=== PATIENT | female | born 1975 | race Caucasian/White ===

== ENCOUNTER → 2016-03-01 | Outpatient (CLI) | payer BC ==
--- NOTE | 2016-03-01 08:59 | MR ---
PRE AND POSTCONTRAST ENHANCED MRI OF THE BRAIN: CLINICAL HISTORY: G50.0 lt sided trigeminal neuralgia, ear pain, jaw pain, dizziness CONTRAST: 20 ML Multihance Multiplanar and multispin-echo imaging of the brain was performed both before and after the administr ation of contrast. The ventricles, basal cisterns and sulci overlying the cerebral convexities are within normal limits. There is no evidence for midline shift or mass effect. Acute intracranial hemorrhage or extra-axial collection is not evident. There are no abnormal areas of increased or decreased signal intensity within the brain parenchyma. Following contrast administration, there is no evidence for pathologic enhancement or enhancing mass. The paranasal sinuses and mastoid air cells are well-aerated. IMPRESSION: Unremarkable pre and postcontrast enhanced MRI of the brain.
== END | disposition home or self-care (01) ==
LOC: RADMRIMAIN 07:53
PROVIDERS: ATTEND Psychiatry & Neurology Neurology
DX: G50.0 Trigeminal neuralgia (principal)
CPT/HCPCS: 70553; A9577

== ENCOUNTER 2016-08-23 12:42 | Emergency (ER) | payer BC, OTHER ==
[2016-08-23] MEDS ORDERED: SODIUM CHLORIDE 0.9% 1,000 ML IV STA (13:03)
--- NOTE | 2016-08-23 13:06 | ED ---
General Adult HPI - General Chief complaint: Arrhythmia/Palpitations Stated complaint: heart palpatations Time Seen by Provider: 08/23/16 12:59 Source: patient Mode of arrival: wheelchair Limitations: no limitations - History of Present Illness Initial comments: Patient is a pleasant 41-year-old female presenting to the emergency Department with palpitations. Symptoms have been present for the past week. Symptoms are intermittent. Symptoms usually seem to be worse after eating or late afternoon. Patient states symptoms are not present at this time. No associated chest pain or dyspnea. No leg pain or leg swelling. Patient did see her doctor for this and did have a Holter monitor however results are not back - Related Data Home Medications Medication Instructions Recorded Confirmed hydrOXYzine HCL [Atarax] 25 mg PO HS 07/03/14 08/23/16 Cholecalciferol [Vitamin D3] 4,000 unit PO DAILY 08/23/16 08/23/16 FLUoxetine HCL [PROzac] 40 mg PO DAILY 08/23/16 08/23/16 Gabapentin [Neurontin] 200 mg PO HS 08/23/16 08/23/16 Ibuprofen [Motrin] 600 mg PO Q8HR PRN 08/23/16 08/23/16 L.acidoph,Paracasei, B.lactis 1 cap PO DAILY 08/23/16 08/23/16 [Probiotic] LORazepam [Ativan] 0.5 mg PO HS PRN 08/23/16 08/23/16 Levothyroxine Sodium [Levoxyl] 200 mcg PO DAILY 08/23/16 08/23/16 Omeprazole [PriLOSEC] 20 mg PO AC-BID 08/23/16 08/23/16 Vitamin B Complex 1 cap PO DAILY 08/23/16 08/23/16 Allergies Allergy/AdvReac Type Severity Reaction Status Date / Time azithromycin [From Zithromax] Allergy Rash/Hives Verified 08/23/16 14:14 Cephalosporins Allergy Rash/Hives Verified 08/23/16 14:14 peanut Allergy Unknown Verified 08/23/16 14:14 Penicillins Allergy Rash/Hives Verified 08/23/16 14:14 Review of Systems ROS Statement: Those systems with pertinent positive or pertinent negative responses have been documented in the HPI. ROS Other: All systems not noted in ROS Statement are negative. Constitutional: Denies: fever Eyes: Denies: eye pain ENT: Denies: ear pain Respiratory: Denies: cough, dyspnea Cardiovascular: Reports: palpitations. Denies: chest pain Endocrine: Denies: fatigue Gastrointestinal: Denies: abdominal pain Genitourinary: Denies: dysuria Musculoskeletal: Denies: back pain Skin: Denies: rash Neurological: Denies: weakness Past Medical History Past Medical History: Asthma, GERD/Reflux, Thyroid Disorder History of Any Multi-Drug Resistant Organisms: None Reported Past Surgical History: Uterine Ablation Additional Past Surgical History / Comment(s): eye surg. Past Anesthesia/Blood Transfusion Reactions: No Reported Reaction Past Psychological History: Anxiety, Depression Smoking Status: Never smoker Past Alcohol Use History: None Reported Past Drug Use History: None Reported - Past Family History Mother Family Medical History: No Reported History General Exam Limitations: no limitations General appearance: alert, in no apparent distress Head exam: Present: atraumatic Eye exam: Present: normal appearance, PERRL ENT exam: Present: normal oropharynx Neck exam: Present: normal inspection Respiratory exam: Present: normal lung sounds bilaterally Cardiovascular Exam: Present: regular rate, normal rhythm, normal heart sounds Expanded Peripheral pulses: 2+: Radial (R), Radial (L), Dorsalis Pedis (R), Dorsalis Pedis (L) GI/Abdominal exam: Present: soft. Absent: tenderness Extremities exam: Present: normal inspection. Absent: pedal edema, calf tenderness Neurological exam: Present: alert Psychiatric exam: Present: normal affect, normal mood Skin exam: Present: normal color Course Vital Signs 08/23/16 08/23/16 12:44 13:34 Temperature 97.8 F 98.9 F Pulse Rate 85 92 Respiratory 20 16 Rate Blood Pressure 135/78 131/64 O2 Sat by Pulse 95 98 Oximetry EKG Findings - EKG Comments: EKG Findings:: Normal sinus rhythm 81. AK 162. QRS 92. QT 388. QTC 450. Normal axis. Normal QRS. Normal ST-T. Medical Decision Making - Medical Decision Making Patient reevaluated and resting comfortably in bed. Patient remained symptom- free. Patient updated on results and need for follow-up. Patient does not want to start a trial of beta blockers at this time. - Lab Data Result diagrams: 08/23/16 13:17 08/23/16 13:17 Lab Results 08/23/16 08/23/16 08/23/16 Range/Units 13:17 13:17 13:17 WBC 6.4 (3.8-10.6) k/uL RBC 4.51 (3.80-5.40) m/uL Hgb 13.7 (11.4-16.0) gm/dL Hct 38.4 (34.0-46.0) % MCV 85.1 (80.0-100.0) fL MCH 30.4 (25.0-35.0) pg MCHC 35.7 (31.0-37.0) g/dL RDW 12.4 (11.5-15.5) % Plt Count 290 (150-450) k/uL Neutrophils % 50 % Lymphocytes % 39 % Monocytes % 5 % Eosinophils % 3 % Basophils % 2 % Neutrophils # 3.2 (1.3-7.7) k/uL Lymphocytes # 2.5 (1.0-4.8) k/uL Monocytes # 0.3 (0-1.0) k/uL Eosinophils # 0.2 (0-0.7) k/uL Basophils # 0.1 (0-0.2) k/uL PT (9.0-12.0) sec INR (<1.1) APTT (22.0-30.0) sec Sodium 143 (137-145) mmol/L Potassium 3.9 (3.5-5.1) mmol/L Chloride 108 H (98-107) mmol/L Carbon Dioxide 24 (22-30) mmol/L Anion Gap 11 mmol/L BUN 9 (7-17) mg/dL Creatinine 0.70 (0.52-1.04) mg/dL Est GFR (MDRD) Af Amer >60 (>60 ml/min/1.73 sqM) Est GFR (MDRD) Non-Af >60 (>60 ml/min/1.73 sqM) Glucose 102 H (74-99) mg/dL Calcium 9.3 (8.4-10.2) mg/dL Magnesium 1.9 (1.6-2.3) mg/dL Total Bilirubin 0.3 (0.2-1.3) mg/dL AST 20 (14-36) U/L ALT 27 (9-52) U/L Alkaline Phosphatase 67 (38-126) U/L Total Creatine Kinase 52 (30-135) U/L CK-MB (CK-2) 0.4 (0.0-2.4) ng/mL CK-MB (CK-2) Rel Index 0.8 Troponin I <0.012 (0.000-0.034) ng/mL Total Protein 6.7 (6.3-8.2) g/dL Albumin 4.1 (3.5-5.0) g/dL TSH 0.403 L (0.465-4.680) mIU/L Free T4 1.26 (0.78-2.19) ng/dL Free T3 pg/mL 3.8 (2.8-5.3) pg/ml 08/23/16 Range/Units 13:17 WBC (3.8-10.6) k/uL RBC (3.80-5.40) m/uL Hgb (11.4-16.0) gm/dL Hct (34.0-46.0) % MCV (80.0-100.0) fL MCH (25.0-35.0) pg MCHC (31.0-37.0) g/dL RDW (11.5-15.5) % Plt Count (150-450) k/uL Neutrophils % % Lymphocytes % % Monocytes % % Eosinophils % % Basophils % % Neutrophils # (1.3-7.7) k/uL Lymphocytes # (1.0-4.8) k/uL Monocytes # (0-1.0) k/uL Eosinophils # (0-0.7) k/uL Basophils # (0-0.2) k/uL PT 9.7 (9.0-12.0) sec INR 0.9 (<1.1) APTT 22.8 (22.0-30.0) sec Sodium (137-145) mmol/L Potassium (3.5-5.1) mmol/L Chloride (98-107) mmol/L Carbon Dioxide (22-30) mmol/L Anion Gap mmol/L BUN (7-17) mg/dL Creatinine (0.52-1.04) mg/dL Est GFR (MDRD) Af Amer (>60 ml/min/1.73 sqM) Est GFR (MDRD) Non-Af (>60 ml/min/1.73 sqM) Glucose (74-99) mg/dL Calcium (8.4-10.2) mg/dL Magnesium (1.6-2.3) mg/dL Total Bilirubin (0.2-1.3) mg/dL AST (14-36) U/L ALT (9-52) U/L Alkaline Phosphatase (38-126) U/L Total Creatine Kinase (30-135) U/L CK-MB (CK-2) (0.0-2.4) ng/mL CK-MB (CK-2) Rel Index Troponin I (0.000-0.034) ng/mL Total Protein (6.3-8.2) g/dL Albumin (3.5-5.0) g/dL TSH (0.465-4.680) mIU/L Free T4 (0.78-2.19) ng/dL Free T3 pg/mL (2.8-5.3) pg/ml - Radiology Data Radiology results: image reviewed (Chest x-ray shows no acute process) Disposition Clinical Impression: Palpitations Disposition: HOME SELF-CARE Condition: Stable Instructions: Palpitations (ED) Additional Instructions: Please follow-up with your doctor in the next couple of days for recheck. Also for Holter monitor results. Return for increased heart rate, regular heart beat , worsening symptoms or other concerns. Referrals: Niko Ivey DO [Primary Care Provider] - 1-2 days Time of Disposition: 14:44
[2016-08-23 13:35] LABS: Basophils # (A) 0.1 k/uL (0-0.2); Basophils % (A) 2 %; CH 29.6; CHCM 34.9; Eosinophils # (A) 0.2 k/uL (0-0.7); Eosinophils % (A) 3 %; HCT 38.4 % (34.0-46.0); HGB 13.7 gm/dL (11.4-16.0); Luc # (Auto) 0.17; Luc % (Auto) 3; Lymphocytes # (A) 2.5 k/uL (1.0-4.8); Lymphocytes % (A) 39 %; MCH 30.4 pg (25.0-35.0); MCHC 35.7 g/dL (31.0-37.0); MCV 85.1 fL (80.0-100.0); Mean Platelet Volume 7.6; Monocytes # (A) 0.3 k/uL (0-1.0); Monocytes % (A) 5 %; Neutrophils # (A) 3.2 k/uL (1.3-7.7); Neutrophils % (A) 50 %; RBC 4.51 m/uL (3.80-5.40); RDW 12.4 % (11.5-15.5); WBC 6.4 k/uL (3.8-10.6)
[2016-08-23 13:43] LABS: INR 0.9 (<1.1); Partial Thromboplastin Time 22.8 sec (22.0-30.0); Prothrombin Time 9.7 sec (9.0-12.0)
[2016-08-23 13:46] VITALS: RESP 16
[2016-08-23 13:53] LABS: ALT 27 U/L (9-52); AST 20 U/L (14-36); Alkaline Phosphatase 67 U/L (38-126); Anion Gap 11 mmol/L; Blood Urea Nitrogen 9 mg/dL (7-17); Calcium 9.3 mg/dL (8.4-10.2); Carbon Dioxide 24 mmol/L (22-30); Chloride 108 mmol/L (98-107); Glucose 102 mg/dL (74-99); Magnesium 1.9 mg/dL (1.6-2.3); Non-African American GFR(MDRD) >60 (>60 ml/min/1.73 sqM); Potassium 3.9 mmol/L (3.5-5.1); Sodium 143 mmol/L (137-145); Total Bilirubin 0.3 mg/dL (0.2-1.3); Total Protein 6.7 g/dL (6.3-8.2)
[2016-08-23 13:58] LABS: Creatine Kinase 52 U/L (30-135)
--- NOTE | 2016-08-23 14:01 | XR ---
EXAMINATION TYPE: XR chest 2V DATE OF EXAM: 08/23/2016 COMPARISON: 11/02/2015 INDICATION: Heart palpitations asthma TECHNIQUE: Frontal and lateral views of the chest are obtained. FINDINGS: The heart size is normal. The pulmonary vasculature is normal. The lungs are clear. IMPRESSION: 1. No acute pulmonary process.
[2016-08-23 14:10] LABS: Creatine Kinase MB 0.4 ng/mL (0.0-2.4); Troponin I <0.012 ng/mL (0.000-0.034)
[2016-08-23 15:15] VITALS: BP 127/66; PULSE 76; TEMP 98.8
== END 2016-08-23 15:00 | disposition home or self-care (01) ==
LOC: EC 12:42
DX: R00.2 Palpitations (principal); K21.9 Gastro-esophageal reflux disease without esophagitis; E07.9 Disorder of thyroid, unspecified; F32.9 Major depressive disorder, single episode, unspecified; F41.9 Anxiety disorder, unspecified; Z79.899 Other long term (current) drug therapy; Z88.0 Allergy status to penicillin; Z88.1 Allergy status to other antibiotic agents; Z91.010 Allergy to peanuts
CPT/HCPCS: 36415; 71020; 80053; 82550; 82553; 83735; 84439; 84443; 84481; 84484; 85025; 85610; 85730; 93005; 96360; 99285

== ENCOUNTER → 2017-01-08 | Outpatient (CLI) | payer BC ==
[2017-01-08 15:15] LABS: Anion Gap 10 mmol/L; Blood Urea Nitrogen 14 mg/dL (7-17); Calcium 9.7 mg/dL (8.4-10.2); Carbon Dioxide 30 mmol/L (22-30); Chloride 101 mmol/L (98-107); Glucose 100 mg/dL (74-99); Non-African American GFR(MDRD) >60 (>60 ml/min/1.73 sqM); Phosphorous 3.5 mg/dL (2.5-4.5); Potassium 3.3 mmol/L (3.5-5.1); Sodium 141 mmol/L (137-145)
== END | disposition home or self-care (01) ==
LOC: LABWHC1 14:28
PROVIDERS: ATTEND Internal Medicine Endocrinology, Diabetes & Metabolism
DX: E11.65 Type 2 diabetes mellitus with hyperglycemia (principal); E03.9 Hypothyroidism, unspecified; N25.81 Secondary hyperparathyroidism of renal origin
CPT/HCPCS: 36415; 80048; 82040; 82306; 84100; 84439; 84443

== ENCOUNTER → 2017-10-10 | Outpatient (CLI) | payer BC ==
--- NOTE | 2017-10-10 08:04 | US ---
EXAMINATION TYPE: US pelvic complete DATE OF EXAM: 10/10/2017 COMPARISON: NONE CLINICAL HISTORY: R10.2 Pelvic pain. TECHNIQUE: Transabdominal sonographic images of the pelvis were acquired. Date of LMP: Ablation 10 years prior, no menses since then until August and patient had 8 hours of ble eding EXAM MEASUREMENTS: Uterus: 8.6 x 3.9 x 4.6 cm Endometrial Stripe: 0.4 cm Right Ovary: 2.0 x 1.3 x 1.5 cm Left Ovary: 1.7 x 1.6 x 1.5 cm 1. Uterus: Anteverted 2. Endometrium: ablation 10 years prior, small echogenic foci noted within 3. Right Ovary: wnl 4. Left Ovary: wnl 5. Bilateral Adnexa: wnl 6. Posterior cul-de-sac: wnl IMPRESSION: Endometrium is not well-defined and likely due to prior intervention as noted by patient history.
== END | disposition home or self-care (01) ==
LOC: RADUSWWP 06:54
PROVIDERS: ATTEND Family Medicine
DX: R10.2 Pelvic and perineal pain (principal)
CPT/HCPCS: 76856

== ENCOUNTER → 2017-10-17 | Outpatient (CLI) | payer BC ==
--- NOTE | 2017-10-18 13:41 | MM ---
Reason for exam: screening (asymptomatic). Last mammogram was performed 10 years and 1 month ago. History: Family history of breast cancer in grandmother. Took hormonal contraceptives for 31 years. Physical Findings: A clinical breast exam by your physician is recommended on an annual basis and results should be correlated with mammographic findings. MG Screening Mammo w CAD Bilateral CC and MLO view(s) were taken. Prior study comparison: September 13, 2007, bilateral diagnostic digital mammog. The breast tissue is heterogeneously dense. This may lower the sensitivity of mammography. There is no discrete abnormality. No significant changes when compared with prior studies. ASSESSMENT: Negative, BI-RAD 1 RECOMMENDATION: Routine screening mammogram of both breasts in 1 year.
== END | disposition home or self-care (01) ==
LOC: RADMAMWWP 16:47
PROVIDERS: ATTEND Family Medicine
DX: Z12.31 Encounter for screening mammogram for malignant neoplasm of breast (principal)
CPT/HCPCS: 77067

== ENCOUNTER → 2020-01-07 | Outpatient (CLI) | payer BC ==
[2020-01-07 08:45] LABS: Basophils # (A) 0.1 k/uL (0-0.2); Basophils % (A) 1 %; Eosinophils # (A) 0.2 k/uL (0-0.7); Eosinophils % (A) 2 %; HCT 45.5 % (34.0-46.0); HGB 15.3 gm/dL (11.4-16.0); Lymphocytes # (A) 1.4 k/uL (1.0-4.8); Lymphocytes % (A) 14 %; MCH 30.3 pg (25.0-35.0); MCHC 33.6 g/dL (31.0-37.0); MCV 90.3 fL (80.0-100.0); Mean Platelet Volume 7.7; Monocytes # (A) 0.4 k/uL (0-1.0); Monocytes % (A) 4 %; Neutrophils # (A) 8.2 k/uL (1.3-7.7); Neutrophils % (A) 79 %; Platelet Count 301 k/uL (150-450); RBC 5.04 m/uL (3.80-5.40); RDW 11.9 % (11.5-15.5); WBC 10.3 k/uL (3.8-10.6)
[2020-01-07 08:55] LABS: Calcium 9.4 mg/dL (8.4-10.2); Potassium 3.3 mmol/L (3.5-5.1)
[2020-01-07 09:20] LABS: Appearance,Urine Clear (Clear); Bilirubin,Urine Negative (Negative); Blood,Urine Negative (Negative); Color,Urine Yellow; Glucose,Urine (UA) Negative (Negative); Ketones,Urine Negative (Negative); Leukocyte Esterase,Urine Negative (Negative); Nitrite,Urine Negative (Negative); PH, Urine 5.5 (5.0-8.0); Protein,Urine Trace (Negative); Specific Gravity,Urine 1.028 (1.001-1.035); Urobilinogen,Urine <2.0 mg/dL (<2.0)
== END | disposition home or self-care (01) ==
LOC: LABPAT 07:54
PROVIDERS: ATTEND Urology
DX: Z01.818 Encounter for other preprocedural examination (principal); N39.3 Stress incontinence (female) (male); R35.0 Frequency of micturition; Z79.899 Other long term (current) drug therapy
CPT/HCPCS: 36415; 80048; 81003; 85025; 87086

== ENCOUNTER 2020-01-14 06:09 | Observation (INO) | payer BC ==
[2020-01-09 16:51] VITALS: BMI 32.5
--- NOTE | 2020-01-13 19:58 | P.GSHP ---
History of Present Illness H&P Date: 01/13/20 44 yo female with worsening juan jose for several years. [id number] SHe has documented urinary leakage with valsalva, uds. SHe has a hypermobile urethra. Her LPP are between 110 and 153 cm h2o. She cones for a tot. The risks complications and alternatives have been discussed. the mesh controversy including pain, erosion, injury to adjacent organs have been discussed. - Constitutional Constitutional: Denies chills, Denies fever - EENT Eyes: denies blurred vision, denies pain Ears, nose, mouth and throat: Denies headache, Denies sore throat - Cardiovascular Cardiovascular: Denies chest pain, Denies shortness of breath - Respiratory Respiratory: Denies cough, Denies 7 - Gastrointestinal Gastrointestinal: Denies abdominal pain, Denies diarrhea, Denies nausea, Denies vomiting - Genitourinary (Female) Genitourinary: Denies dysuria, Denies hematuria - Genitourinary (Male) Genitourinary: Denies dysuria, Denies hematuria - Musculoskeletal Musculoskeletal: Denies myalgias - Integumentary Integumentary: Denies pruritus, Denies rash - Neurological Neurological: Denies numbness, Denies weakness - Psychiatric Psychiatric: Denies anxiety, Denies depression - Endocrine Endocrine: Denies fatigue, Denies weight change Past Medical History Past Medical History: Asthma, GERD/Reflux, Hyperlipidemia, Hypertension, Sleep Apnea/CPAP/BIPAP, Thyroid Disorder Additional Past Medical History / Comment(s): Hx of occ PVC's, stress induced. Mild allergic asthma. "Family Dr Ernst says HTN, but it's always been good." Bladder stress incontinance. Has CPAP. History of Any Multi-Drug Resistant Organisms: None Reported Past Surgical History: Uterine Ablation Additional Past Surgical History / Comment(s): Muscle eye surg; PRK bilat. Past Anesthesia/Blood Transfusion Reactions: No Reported Reaction Smoking Status: Never smoker - Past Family History Mother Family Medical History: No Reported History Medications and Allergies Home Medications Medication Instructions Recorded Confirmed Type Cholecalciferol [Vitamin D3] 5,000 unit PO HS 08/23/16 01/09/20 History FLUoxetine HCL [PROzac] 40 mg PO HS 08/23/16 01/09/20 History Levothyroxine Sodium [Levoxyl] 150 mcg PO DAILY 08/23/16 01/09/20 History Omeprazole [PriLOSEC] 20 mg PO AC-BID 08/23/16 01/09/20 History Atenolol [Tenormin] 25 mg PO DAILY PRN 01/09/20 01/09/20 History Atorvastatin [Lipitor] 40 mg PO HS 01/09/20 01/09/20 History Fexofenadine HCl [Nicol Allergy] 180 mg PO HS 01/09/20 01/09/20 History Pseudoephedrine [Sudafed] 30 mg PO BID 01/09/20 01/09/20 History Topiramate [Topamax] 25 mg PO HS 01/09/20 01/09/20 History Topiramate [Topamax] 50 mg PO DAILY 01/09/20 01/09/20 History busPIRone HCL [Buspar] 7.5 mg PO BID 01/09/20 01/09/20 History traZODone HCL 50 mg PO HS 01/09/20 01/09/20 History Allergies Allergy/AdvReac Type Severity Reaction Status Date / Time peanut Allergy Severe Dyspnea Verified 01/09/20 16:13 Cephalosporins Allergy Rash/Hives Verified 01/09/20 16:13 Penicillins Allergy Rash/Hives Verified 01/09/20 16:13 Surgical - Exam - General well developed, well nourished, no distress - Eyes PERRL - ENT no hearing loss - Neck no masses - Respiratory normal expansion, normal respiratory effort - Cardiovascular Rhythm: regular - Abdomen Abdomen: soft, non tender - Genitourinary hypermobile urethra with documented juan jose. Positive itz test. normal external genitalia, normal perineum - Integumentary no rash, no growths - Neurologic normal coordination, normal sensation - Musculoskeletal normal gait, normal posture - Psychiatric oriented to time, oriented to person, oriented to place, speech is normal, memory intact Assessment and Plan Assessment: Impression: Stress urinary incontinence Plan: Trans obturator tape.
[~2020-01-14 06:09] MED LIST: GENTAMICIN 100 MG in SODIUM CHLORIDE 0.9% 100 ML IVPB PRN; HYDROmorphone 0.5 MG/0.5 ML SYRINGE IVP PRN; LACTATED RINGERS 1,000 ML IV SCH; MIDAZOLAM 2 MG/2 ML VIAL IV PRN; ONDANSETRON 4 MG/2 ML VIAL IVP PRN; fentaNYL (PF) 50 MCG/ML 2 ML AMP IV PRN
[2020-01-14] MEDS ORDERED: LIDOCAINE 1% (10MG/ML) FOR IV START INTRADERMA ONE (07:00)
[2020-01-14] MEDS ORDERED: ONDANSETRON 4 MG/2 ML VIAL ONE (07:11)
[2020-01-14] MEDS ORDERED: ONDANSETRON 4 MG/2 ML VIAL IVP ONE (07:16)
[2020-01-14] MEDS ORDERED: DEXAMETHASONE SOD PHOSPHATE 4 MG/ML 1 ML VIAL IV ONE (07:16)
[2020-01-14] MEDS ORDERED: fentaNYL (PF) 50 MCG/ML 2 ML AMP ONE (07:23)
[2020-01-14] MEDS ORDERED: GLYCOPYRROLATE 0.2 MG/ML 2 ML VIAL ONE (07:23)
[2020-01-14] MEDS ORDERED: KETOROLAC 15 MG/ML 1 ML VIAL ONE (07:23)
[2020-01-14] MEDS ORDERED: PHENYLEPHRINE-0.9% NACL SYG 1 MG/10 ML SYRINGE ONE (07:23)
[2020-01-14] MEDS ORDERED: MIDAZOLAM 2 MG/2 ML VIAL ONE (07:23)
[2020-01-14] MEDS ORDERED: LIDOCAINE 1% INJ 10MG/ML (20 ML MDV) ONE (07:23)
[2020-01-14] MEDS ORDERED: SUCCINYLCHOLINE CHLORIDE VIAL 200 MG/10 ML VIAL IV ONE (07:23)
[2020-01-14] MEDS ORDERED: PROPOFOL 10 MG/ML 20 ML VIAL IV ONE (07:23)
[2020-01-14] MEDS ORDERED: GENTAMICIN IN NACL ISO-OSM PMX 80 MG/100 ML BAG IV ONE (07:46)
[2020-01-14] MEDS ORDERED: VASOPRESSIN 20 UNIT/ML 1 ML VIAL IM ONE (07:47)
[2020-01-14] MEDS ORDERED: BACITRACIN ZINC 500 UNIT/GM OINT 28.4 GM TUBE TOPICAL ONE (08:19)
[2020-01-14] MEDS ORDERED: ONDANSETRON 4 MG/2 ML VIAL IVP PRN (08:34)
--- NOTE | 2020-01-14 08:38 | P.OP ---
Date of Procedure: 01/14/20 Preoperative Diagnosis: Stress urinary incontinence Postoperative Diagnosis: Same Procedure(s) Performed: Placement of obtyryx transobturator tape, cystoscopy Anesthesia: SUSAN Surgeon: Dominik Rene Estimated Blood Loss (ml): 50 Pathology: none sent Condition: stable Disposition: PACU Indications for Procedure: The patient is 44. She has documented stress urinary incontinence. Her leak point pressures are between 110 and 153 cm of water. She comes for a trans- obturator tape to control her leakage the risks and complications including the mesh controversy of been discussed Description of Procedure: The patient was brought to the operating suite. She is given a general anesthesia. She's placed lithotomy position with sterile prep and drape. The labia are sewn laterally with 2-0 silk. A vaginal speculum was placed. A Salcedo catheters placed. I elevate the anterior vaginal mucosa off the submucosa with 20 g of Pitressin and 200 mL of saline. A midline suburethral incision is made. I dissect lateral the bladder neck bilaterally. I make 2 incisions In the inguinal crease at the level clitoris. I then pass the graft introducers through the inguinal incisions into the obturator foramen around the issue pubic ramus into the vaginal space bilaterally. I then attached the graft to the introducers and pull the graft back through the obturator foramen. I then cystoscoped the patient to make sure there is no injury of the bladder and there is none. I then replaced the Salcedo. I tensioned the graft appropriately. I excised the redundant graft at the inguinal incision. I closed the vaginal closed with 2-0 Vicryl. A close inguinal incision with 4-0 Vicryl. Vaginal packing is placed after irrigation. The patient is awake and returned recovery in good condition. Blood loss is approximately 50 mL. The patient be placed in the hospital postoperatively.
[2020-01-14] MEDS ORDERED: atenoloL 25 MG TAB PO PRN (09:51)
[2020-01-14] MEDS: KETOROLAC 15 MG/ML 1 ML VIAL IVP PRN ×2 (14:25→20:38)
[2020-01-14] MEDS: PANTOPRAZOLE 40 MG TABLET PO SCH (18:02)
[2020-01-14] MEDS: DEXTROSE 5%-0.45% NACL 1,000 ML IV SCH ×2 (18:02→20:52)
[2020-01-14] MEDS: busPIRone HCl 5 MG TAB PO SCH (20:36)
[2020-01-14] MEDS: CIPROFLOXACIN HCL 500 MG TAB PO SCH (20:37)
[2020-01-14] MEDS: PSEUDOEPHEDRINE 30 MG TAB PO SCH (20:38)
[2020-01-14] MEDS ORDERED: ATORVASTATIN 40 MG TAB PO SCH (21:00)
[2020-01-14] MEDS ORDERED: FLUoxetine HCL 20 MG CAP PO SCH (21:00)
[2020-01-14] MEDS ORDERED: traZODone HCL 50 MG TAB PO SCH (21:00)
[2020-01-14] MEDS ORDERED: TOPIRAMATE 25 MG TAB PO SCH (21:00)
[2020-01-14] MEDS ORDERED: LORATADINE 10 MG TAB PO SCH (21:00)
[2020-01-15] MEDS: KETOROLAC 15 MG/ML 1 ML VIAL IVP PRN (06:15)
[2020-01-15] MEDS ORDERED: LEVOTHYROXINE 75 MCG TAB PO SCH (06:30)
[2020-01-15] MEDS: PANTOPRAZOLE 40 MG TABLET PO SCH (06:50)
[2020-01-15] MEDS: PSEUDOEPHEDRINE 30 MG TAB PO SCH (08:22)
[2020-01-15] MEDS: CIPROFLOXACIN HCL 500 MG TAB PO SCH (08:23)
[2020-01-15] MEDS: busPIRone HCl 5 MG TAB PO SCH (08:44)
[2020-01-15] MEDS ORDERED: TOPIRAMATE 25 MG TAB PO SCH (09:00)
--- NOTE | 2020-01-15 09:03 | P.DS ---
Providers Date of admission: 01/15/20 05:35 Attending physician: Dominik Rene Primary care physician: [facility] Course: the patient is 44. She was admitted to the hospital yesterday for a trans- obturator tape for stress incontinence. She underwent this uneventfully. Postoperatively she did well. Her pain is under control. The catheter and packing are out.if she voids well she'll be discharged home. She'll follow-up in the office next week. She'll be given Toradol for postoperative pain. Postoperative instructions been given. Condition is good. Patient Condition at Discharge: Good Plan - Discharge Summary Discharge Rx Participant: No New Discharge Prescriptions: New Ketorolac [Toradol] 10 mg PO Q6HR PRN #20 tab PRN Reason: Pain No Action Omeprazole [PriLOSEC] 20 mg PO AC-BID Cholecalciferol [Vitamin D3] 5,000 unit PO HS FLUoxetine HCL [PROzac] 40 mg PO HS busPIRone HCL [Buspar] 7.5 mg PO BID Fexofenadine HCl [Nicol Allergy] 180 mg PO HS Pseudoephedrine [Sudafed] 30 mg PO BID Topiramate [Topamax] 25 mg PO HS Topiramate [Topamax] 50 mg PO QAM traZODone HCL 50 mg PO HS Ciprofloxacin HCl [Cipro] 500 mg PO BID Atorvastatin Calcium [Lipitor] 40 mg PO HS Levothyroxine Sodium [Levoxyl] 150 mcg PO DAILY atenoloL [Atenolol] 25 mg PO DAILY PRN PRN Reason: Heart Palpatations L.acidoph,Paracasei, B.lactis [Probiotic] 1 cap PO DAILY Fluconazole [Diflucan] 150 mg PO Q48H Discharge Medication List Cholecalciferol [Vitamin D3] 5,000 unit PO HS 08/23/16 [History] FLUoxetine HCL [PROzac] 40 mg PO HS 08/23/16 [History] Omeprazole [PriLOSEC] 20 mg PO AC-BID 08/23/16 [History] Fexofenadine HCl [Nicol Allergy] 180 mg PO HS 01/09/20 [History] Pseudoephedrine [Sudafed] 30 mg PO BID 01/09/20 [History] Topiramate [Topamax] 25 mg PO HS 01/09/20 [History] Topiramate [Topamax] 50 mg PO QAM 01/09/20 [History] busPIRone HCL [Buspar] 7.5 mg PO BID 01/09/20 [History] traZODone HCL 50 mg PO HS 01/09/20 [History] Ciprofloxacin HCl [Cipro] 500 mg PO BID 01/14/20 [History] Atorvastatin Calcium [Lipitor] 40 mg PO HS 01/15/20 [History] Fluconazole [Diflucan] 150 mg PO Q48H 01/15/20 [History] Ketorolac [Toradol] 10 mg PO Q6HR PRN #20 tab 01/15/20 [Rx] L.acidoph,Paracasei, B.lactis [Probiotic] 1 cap PO DAILY 01/15/20 [History] Levothyroxine Sodium [Levoxyl] 150 mcg PO DAILY 01/15/20 [History] atenoloL [Atenolol] 25 mg PO DAILY PRN 01/15/20 [History] Follow up Appointment(s)/Referral(s): Dominik Rene MD [STAFF PHYSICIAN] - 1 Week Discharge Disposition: HOME SELF-CARE
[2020-01-15 09:17] VITALS: BP 110/68; PULSE 67; RESP 18; TEMP 98.6
[2020-01-15] MEDS ORDERED: ETODOLAC 300 MG CAPSULE PO ONE (12:17)
== END 2020-01-15 13:00 | disposition home or self-care (01) ==
LOC: OR 06:09 → 6PED 08:29 → OR 01-15 06:05
PROVIDERS: ADMIT Urology; ATTEND Urology
DX: N39.3 Stress incontinence (female) (male) (principal); N36.41 Hypermobility of urethra; I10 Essential (primary) hypertension; E78.5 Hyperlipidemia, unspecified; J45.909 Unspecified asthma, uncomplicated; K21.9 Gastro-esophageal reflux disease without esophagitis; G43.909 Migraine, unspecified, not intractable, without status migrainosus; G47.33 Obstructive sleep apnea (adult) (pediatric); Z99.89 Dependence on other enabling machines and devices; Z79.890 Hormone replacement therapy; Z79.899 Other long term (current) drug therapy; Z88.0 Allergy status to penicillin; Z88.1 Allergy status to other antibiotic agents; Z91.010 Allergy to peanuts; Z98.890 Other specified postprocedural states
CPT/HCPCS: 81025; 84132; 57288; G0378; C1771; J1580 ×2; J2250; J0330; J1100; J2405; J2001; J3010; J1885 ×2; J2370; J2704

== ENCOUNTER → 2020-08-18 | Outpatient (CLI) | payer BC ==
[2020-08-18 08:58] LABS: Basophils # (A) 0.1 k/uL (0-0.2); Basophils % (A) 1 %; Eosinophils # (A) 0.2 k/uL (0-0.7); Eosinophils % (A) 3 %; Lymphocytes # (A) 2.4 k/uL (1.0-4.8); Lymphocytes % (A) 34 %; MCH 30.1 pg (25.0-35.0); MCV 88.4 fL (80.0-100.0); Mean Platelet Volume 7.6; Monocytes # (A) 0.5 k/uL (0-1.0); Monocytes % (A) 6 %; Neutrophils # (A) 3.9 k/uL (1.3-7.7); Neutrophils % (A) 55 %; Platelet Count 263 k/uL (150-450); RBC 4.64 m/uL (3.80-5.40); RDW 12.4 % (11.5-15.5); WBC 7.2 k/uL (3.8-10.6)
[2020-08-18 09:15] LABS: African American GFR (CKD) >90 (>60 ml/min/1.73 sqM); Anion Gap 7 mmol/L; Blood Urea Nitrogen 11 mg/dL (7-17); Carbon Dioxide 27 mmol/L (22-30); Chloride 105 mmol/L (98-107); Glucose 107 mg/dL (74-99); Non-African American GFR(CKD) 85 (>60 ml/min/1.73 sqM); Potassium 3.3 mmol/L (3.5-5.1); Sodium 139 mmol/L (137-145)
[2020-08-18 09:52] LABS: Amorphous Sediment,Urine Moderate /hpf; Appearance,Urine Cloudy (Clear); Bilirubin,Urine Negative (Negative); Blood,Urine Negative (Negative); Color,Urine Yellow; Glucose,Urine (UA) Negative (Negative); Ketones,Urine Negative (Negative); Leukocyte Esterase,Urine Negative (Negative); Mucus,Urine Rare /hpf; Nitrite,Urine Negative (Negative); PH, Urine 6.5 (5.0-8.0); Protein,Urine Negative (Negative); RBC,Urine <1 /hpf (0-5); Urobilinogen,Urine <2.0 mg/dL (<2.0); WBC,Urine 1 /hpf (0-5)
== END | disposition home or self-care (01) ==
LOC: LABPAT 08:27
PROVIDERS: ATTEND Urology
DX: Z01.812 Encounter for preprocedural laboratory examination (principal); N39.0 Urinary tract infection, site not specified; N39.3 Stress incontinence (female) (male)
CPT/HCPCS: 36415; 80048; 81001; 85025; 87086

== ENCOUNTER 2020-08-26 | Observation (INO) | payer BC | END 2020-08-26 14:03 | disposition home or self-care (01) | PROVIDERS: ADMIT Urology | DX: N39.3 Stress incontinence (female) (male) (principal); N36.41 Hypermobility of urethra; E78.5 Hyperlipidemia, unspecified; J45.909 Unspecified asthma, uncomplicated; E07.9 Disorder of thyroid, unspecified; K21.9 Gastro-esophageal reflux disease without esophagitis; I49.3 Ventricular premature depolarization; G43.909 Migraine, unspecified, not intractable, without status migrainosus; G47.33 Obstructive sleep apnea (adult) (pediatric); Z91.19 Patient's noncompliance with other medical treatment and regimen; Z79.890 Hormone replacement therapy; Z79.899 Other long term (current) drug therapy; Z88.0 Allergy status to penicillin; Z88.1 Allergy status to other antibiotic agents; Z91.010 Allergy to peanuts; Z98.890 Other specified postprocedural states | CPT/HCPCS: 81025; 57287; G0378; C1771; J2250; J1580 ×2; J1100; J2405; J2001; J3010; J1170; J1885 ×2; J0330; J2704 ==

== ENCOUNTER 2020-10-28 08:34 | Day surgery (SDC) | payer BC ==
[2020-10-26 11:54] VITALS: BMI 34.6
[~2020-10-28 08:34] MED LIST changes: -GENTAMICIN 100 MG in SODIUM CHLORIDE 0.9% 100 ML IVPB PRN; -HYDROmorphone 0.5 MG/0.5 ML SYRINGE IVP PRN; -MIDAZOLAM 2 MG/2 ML VIAL IV PRN; -ONDANSETRON 4 MG/2 ML VIAL IVP PRN; -fentaNYL (PF) 50 MCG/ML 2 ML AMP IV PRN
[2020-10-28] MEDS ORDERED: LIDOCAINE 1% (10MG/ML) FOR IV START INTRADERMA ONE (08:49)
--- NOTE | 2020-10-28 09:41 | P.GSHP ---
History of Present Illness H&P Date: 10/28/20 CHIEF COMPLAINT: GERD HISTORY OF PRESENT ILLNESS: The patient is a 45-year-old female who presents reports gastroesophageal reflux disease. Upper endoscopy was offered for further evaluation and management. PAST MEDICAL HISTORY: Please see list. PAST SURGICAL HISTORY: Please see list. MEDICATIONS: Please see list. ALLERGIES: Please see list. SOCIAL HISTORY: No illicit drug use FAMILY HISTORY: No reports of Crohn disease or ulcerative colitis. REVIEW OF ORGAN SYSTEMS: CONSTITUTIONAL: No reports of fevers or chills. GI: Denies any blood in stools or constipation. PHYSICAL EXAM: VITAL SIGNS: Stable GENERAL: Well-developed and pleasant in no acute distress. HEENT: No scleral icterus. Extraocular movements grossly intact. Moist buccal mucosa. NECK: Supple without lymphadenopathy. CHEST: Unlabored respirations. Equal bilateral excursions. CARDIOVASCULAR: Regular rate and rhythm. Distal 2+ pulses. ABDOMEN: Soft, nondistended. MUSCULOSKELETAL: No clubbing, cyanosis, or edema. ASSESSMENT: 1. Gastroesophageal reflux disease PLAN: 1. Recommend proceeding with an upper endoscopy Past Medical History Past Medical History: Asthma, GERD/Reflux, Thyroid Disorder Additional Past Medical History / Comment(s): Hx of occ PVC's, stress induced. Mild allergic asthma. "Family Dr Ernst says HTN, but it's always been good." supposed to use CPAP, increasing GERD History of Any Multi-Drug Resistant Organisms: None Reported Past Surgical History: Bladder Surgery, Orthopedic Surgery, Uterine Ablation Additional Past Surgical History / Comment(s): eye surg., cubital tunnel release left elbow, cystoscopy, pubo vaginal sling Past Anesthesia/Blood Transfusion Reactions: No Reported Reaction Additional Past Anesthesia/Blood Transfusion Reaction / Comment(s): difficult IV start Smoking Status: Never smoker - Past Family History Mother Family Medical History: No Reported History Medications and Allergies Home Medications Medication Instructions Recorded Confirmed Type Cholecalciferol [Vitamin D3] 5,000 unit PO Q48H 08/23/16 10/28/20 History FLUoxetine HCL [PROzac] 40 mg PO HS 08/23/16 10/28/20 History Omeprazole [PriLOSEC] 20 mg PO AC-BID 08/23/16 10/28/20 History Pseudoephedrine [Sudafed] 30 mg PO BID PRN 01/09/20 10/28/20 History Topiramate [Topamax] 25 mg PO QAM 01/09/20 10/28/20 History Topiramate [Topamax] 50 mg PO HS 01/09/20 10/28/20 History busPIRone HCL [Buspar] 7.5 mg PO BID 01/09/20 10/28/20 History traZODone HCL 50 mg PO HS 01/09/20 10/28/20 History Atorvastatin Calcium [Lipitor] 40 mg PO HS 01/15/20 10/28/20 History L.acidoph,Paracasei, B.lactis 1 cap PO DAILY 01/15/20 10/28/20 History [Probiotic] Levothyroxine Sodium [Levoxyl] 150 mcg PO [id number] 01/15/20 10/28/20 History atenoloL [Atenolol] 25 mg PO DAILY PRN 01/15/20 10/28/20 History Levothyroxine Sodium [Levoxyl] 300 mcg PO HUFF 08/20/20 10/28/20 History Allergies Allergy/AdvReac Type Severity Reaction Status Date / Time peanut Allergy Severe Dyspnea Verified 10/26/20 11:39 Cephalosporins Allergy Rash/Hives Verified 10/26/20 11:39 Penicillins Allergy Rash/Hives Verified 10/26/20 11:39
[2020-10-28] MEDS ORDERED: PROPOFOL 10 MG/ML 20 ML VIAL IV ONE (09:45)
[2020-10-28 10:15] VITALS: RESP 16
--- NOTE | 2020-10-28 10:17 | P.PCN ---
Date of Procedure: 10/28/20 Description of Procedure: PREOPERATIVE DIAGNOSIS: Gastroesophageal reflux disease. Morbid obesity. POSTOPERATIVE DIAGNOSIS: Morbid obesity. Gastritis. Gastroesophageal reflux disease. Gastric polyposis OPERATION: Esophagogastroduodenoscopy with biopsies along antrum. Esophagogastroduodenoscopy with hot snare polypectomy gastric body SURGEON: Daiana Mak MD ANESTHESIA: MAC. INDICATIONS: The patient is a 45-year-old female who presents with a history of reflux disease. Benefits and risks of the procedure were described. Informed consent was obtained. DESCRIPTION: The patient was brought into the endoscopy suite and laid in the left lateral decubitus position. An Olympus gastroscope was passed along the posterior oropharynx down to the distal esophagus where the squamocolumnar junction was encountered at 38 cm from the incisors. The stomach was entered and no bile reflux was found. Additional findings are listed below. Biopsies with cold forceps were obtained of the antrum. Multiple polyps were found within the stomach with large polyp with recent bleeding. The first through third portion of the duodenum was examined and unremarkable. Retroflexion of the scope confirmed Hill grade 2 lower esophageal valve. The squamocolumnar junction demonstrated LA grade B erosive esophagitis. The stomach was desufflated. The patient tolerated the procedure well. FINDINGS: Squamocolumnar junction 38 cm from the incisors. Diaphragmatic hiatus at 38 cm. Hill grade 2 lower esophageal valve. LA grade B erosive esophagitis. No active duodenitis. Chronic gastritis Large 15 mm gastric polyp recent stigmata of bleeding along the gastric body resected with hot snare for polypectomy RECOMMENDATIONS: Upper endoscopy as needed. Plan - Discharge Summary Discharge Rx Participant: No New Discharge Prescriptions: Continue Omeprazole [PriLOSEC] 20 mg PO AC-BID Cholecalciferol [Vitamin D3 (25 Mcg = 1000 Iu)] 5,000 unit PO Q48H FLUoxetine HCL [PROzac] 40 mg PO HS busPIRone HCL [Buspar] 7.5 mg PO BID Pseudoephedrine [Sudafed] 30 mg PO BID PRN PRN Reason: allergies Topiramate [Topamax] 50 mg PO HS Topiramate [Topamax] 25 mg PO QAM traZODone HCL 50 mg PO HS Atorvastatin Calcium [Lipitor] 40 mg PO HS Levothyroxine Sodium [Levoxyl] 150 mcg PO MOTUWETHFRSA atenoloL 25 mg PO DAILY PRN PRN Reason: Heart Palpatations L.acidoph,Paracasei, B.lactis [Probiotic] 1 cap PO DAILY Levothyroxine Sodium [Levoxyl] 300 mcg PO HUFF Discharge Medication List Cholecalciferol [Vitamin D3 (25 Mcg = 1000 Iu)] 5,000 unit PO Q48H 08/23/16 [History] FLUoxetine HCL [PROzac] 40 mg PO HS 08/23/16 [History] Omeprazole [PriLOSEC] 20 mg PO AC-BID 08/23/16 [History] Pseudoephedrine [Sudafed] 30 mg PO BID PRN 01/09/20 [History] Topiramate [Topamax] 25 mg PO QAM 01/09/20 [History] Topiramate [Topamax] 50 mg PO HS 01/09/20 [History] busPIRone HCL [Buspar] 7.5 mg PO BID 01/09/20 [History] traZODone HCL 50 mg PO HS 01/09/20 [History] Atorvastatin Calcium [Lipitor] 40 mg PO HS 01/15/20 [History] L.acidoph,Paracasei, B.lactis [Probiotic] 1 cap PO DAILY 01/15/20 [History] Levothyroxine Sodium [Levoxyl] 150 mcg PO MOTUWETHFRSA 01/15/20 [History] atenoloL 25 mg PO DAILY PRN 01/15/20 [History] Levothyroxine Sodium [Levoxyl] 300 mcg PO HUFF 08/20/20 [History] Follow up Appointment(s)/Referral(s): Daiana Mak MD [STAFF PHYSICIAN] - 11/11/20 Patient Instructions/Handouts: Gastritis (DC), Diet for Stomach Ulcers and Gastritis (ED) Discharge Disposition: HOME SELF-CARE
[2020-10-28 10:28] VITALS: BP 118/75; PULSE 74
== END 2020-10-28 10:43 | disposition home or self-care (01) ==
LOC: ORWHC2ENDO 08:34
PROVIDERS: ATTEND Surgery Plastic and Reconstructive Surgery
DX: K29.50 Unspecified chronic gastritis without bleeding (principal); K31.7 Polyp of stomach and duodenum; K21.9 Gastro-esophageal reflux disease without esophagitis; Z88.0 Allergy status to penicillin; Z88.1 Allergy status to other antibiotic agents; E66.01 Morbid (severe) obesity due to excess calories; Z82.49 Family history of ischemic heart disease and other diseases of the circulatory system; J45.909 Unspecified asthma, uncomplicated; E07.9 Disorder of thyroid, unspecified; E78.5 Hyperlipidemia, unspecified; G47.33 Obstructive sleep apnea (adult) (pediatric); F41.8 Other specified anxiety disorders; Z79.899 Other long term (current) drug therapy; Z86.14 Personal history of Methicillin resistant Staphylococcus aureus infection
CPT/HCPCS: 43239; 43251; 81025; 88305; J2704

== ENCOUNTER → 2024-05-27 | Outpatient (CLI) | payer BC ==
--- NOTE | 2024-05-27 15:05 | XR ---
EXAMINATION TYPE: XR finger RT DATE OF EXAM: 05/27/2024 CLINICAL INDICATION: Female, 49 years old with history of [id number] FINGER INJURY, pain TECHNIQUE: Frontal and lateral images of the third and fourth fingers right hand are obtained. COMPARISON: None. FINDINGS: There is no acute displaced fracture evident in the third or fourth fingers of the right h and. The joint spaces are preserved. The overlying soft tissue appears unremarkable. IMPRESSION: As above. [facility], , 05/27/2024 3:03 PM
== END | disposition home or self-care (01) ==
LOC: RADXRYALE 14:43
PROVIDERS: ATTEND Physician Assistant Medical
DX: S67.192A Crushing injury of right middle finger, initial encounter (principal); S67.194A Crushing injury of right ring finger, initial encounter